=== PATIENT | female | born 1970 | race Hispanic/Latino ===

== ENCOUNTER 2017-07-14 10:01 | Outpatient (CLI) | payer BC ==
[2017-07-14 10:43] LABS: Hemoglobin 13.8 g/dL (12.0-16.0); Mean Corpuscular HGB CONC 34.8 g/dL (32.0-36.0); Mean Corpuscular Volume 94.9 fl (81.0-99.0); Mean Platelet Volume 6.8 fL (7.4-10.4); Platelet Count 265 thou/uL (130-400); RBC Distribution Width 10.8 % (11.5-14.5); Red Blood Cell (RBC) Count 4.18 mill/uL (4.20-5.40); White Blood Cell (WBC) Count 5.4 thou/uL (4.8-10.8)
[2017-07-14 10:51] LABS: INR-International Normal Ratio 0.9; PTT 28.7 SEC (22.9-36.1); Prothrombin Time 12.5 SEC (12.0-14.7)
[2017-07-14 11:05] LABS: Anion Gap 14 mmol/L (10-20); BUN (Urea Nitrogen) 13 mg/dL (7.0-18.7); Calc. Creatinine Clearance 0 mL/min (70-130); Calcium 9.5 mg/dL (7.8-10.44); Carbon Dioxide 23 mmol/L (22-29); Chloride 107 mmol/L (98-107); Estimated GFR-MDRD 90; Glucose 109 mg/dL (70-105); Potassium 4.1 mmol/L (3.5-5.1); Sodium 140 mmol/L (136-145)
== END 2017-07-14 10:02 | disposition home or self-care (01) ==
LOC: LABBT 10:01
PROVIDERS: ATTEND Surgery
DX: Z01.818 Encounter for other preprocedural examination (principal); M48.02 Spinal stenosis, cervical region; M54.12 Radiculopathy, cervical region
CPT/HCPCS: 80048; 85027; 85610; 85730; 93005; 93010

== ENCOUNTER 2017-07-17 05:48 | Day surgery (SDC) | payer BC ==
[2017-07-16 11:23] VITALS: BMI 25.0
[2017-07-17] MEDS ORDERED: Thrombin 5000 UNITS/5 ML VIAL ONE (06:24)
[2017-07-17] MEDS ORDERED: Sodium Chloride 0.9% 10 ML ONE (06:24)
[2017-07-17] MEDS ORDERED: Midazolam HCl 2 mg/2 ml Vial ONE (07:06)
[2017-07-17] MEDS ORDERED: CEFAZOLIN/Water 2 GM/20 ML SYRINGE ONE (07:06)
[2017-07-17] MEDS ORDERED: Fentanyl 100 MCG/2 ML VIAL ONE (07:25)
[2017-07-17] MEDS ORDERED: Meperidine HCl/PF 25 MG/ML VIAL SLOW IVP PRN (08:40)
[2017-07-17] MEDS ORDERED: Promethazine HCl 25 MG/ML VIAL SLOW IVP PRN (08:40)
[2017-07-17] MEDS ORDERED: HYDROmorphone 2 MG/ML VIAL SLOW IVP PRN (08:40)
[2017-07-17] MEDS ORDERED: Ondansetron HCl/PF 4 MG/2 ML Vial IVP PRN (08:40)
[2017-07-17] MEDS ORDERED: Promethazine HCl 25 MG/ML VIAL IM PRN ×2 (08:40→10:28)
[2017-07-17] MEDS ORDERED: Morphine Sulfate 2 MG/ML SYRINGE SLOW IVP PRN (08:40)
[2017-07-17] MEDS ORDERED: HYDROmorphone 0.5 MG/0.5 ML SYRINGE ONE ×3 (10:08→10:22)
[2017-07-17] MEDS ORDERED: Promethazine HCl 25 MG/ML VIAL ONE (10:26)
[2017-07-17] MEDS ORDERED: Mag-Al 1200 mg/1200 mg/30 ML UDCUP PO PRN (10:28)
[2017-07-17] MEDS ORDERED: Acetaminophen/Codeine 30-300mg Tablet PO PRN (10:28)
[2017-07-17] MEDS ORDERED: Milk Of Magnesia 30 ML UDCUP PO PRN (10:28)
[2017-07-17] MEDS ORDERED: traMADol HCl 50 MG TAB PO PRN (10:28)
[2017-07-17] MEDS ORDERED: Fleet Enema 133 ML BOT PR PRN (10:28)
[2017-07-17] MEDS ORDERED: Acetaminophen 325 MG TAB PO PRN (10:28)
[2017-07-17] MEDS ORDERED: Bisacodyl 10 MG SUPP PR PRN (10:28)
--- NOTE | 2017-07-17 11:07 | OP ---
DATE OF PROCEDURE: 07/17/2017 OR: OR #11. WOUND TYPE: Type 1 wound. SURGEON: Thomas Soriano M.D. MEDICAL ESTHETICIAN: Juan Carlos Irving PA-C. PREPROCEDURE DIAGNOSES: Multilevel cervical stenosis with cervical cord compression and nerve root c ompression. POSTPROCEDURE DIAGNOSES: Multilevel cervical stenosis with cervical cord compression and nerve root compression. PROCEDURE: 1. Anterior C3-C4, C4-C5, C5-C6 diskectomies for decompression spinal cord nerve roots and placement of interbody spacers. C3-C4, C4-C5, C5-C6 packed with local bone autograft obtained from same incis ion allograft for arthrodesis C3-C4, C4-C5, C5-C6. 2. Anterior cervical plate and screw fixation, C3-C4, C5-C6. 3. Use of operative microscope for microdissection. PROCEDURE: After informed consent was obtained from the patient, the patient brought to OR 11. Prop er patient pause and identification was carried out. She was placed under excellent endotracheal ane sthesia and positioned supine on the OR table. All appropriate points were padded. Cervical spine w as kept in neutral position and we identified an oblique belle to allow for approach to C3, C4, C5, C6 segments. This region was sterilely cleansed, prepared, and draped. Proper patient pause and ident ification was carried out. The wound was then opened with a combination of sharp, monopolar and blun t dissection and we proceeded lateral to the larynx and pharynx and medial to the right carotid sheat h. We identified the C3, C4, C5, C6 segments and the prevertebral layer of deep cervical fascia. Lo calization confirmed our area of interest and retraction was set. Distraction at C3-C4 then occurred and microscope was brought in for microdissection. A diskectomy at C3-C4 was performed with decompr ession of the neural elements. Interbody spacer of appropriate dimension was packed with graft and p laced at C3-C4 for arthrodesis. Distraction at C4-C5 then occurred. Diskectomy was performed there with placement of interbody spacer following a satisfactory neural element decompression and an inter body spacer placed at C4-C5 for arthrodesis also packed with graft and distraction was released and p laced again at C5-C6 for diskectomy and again with decompression of neural elements and placement int erbody spacer packed with graft at C5-C6. We were satisfied with our construct. The microscope was removed. An anterior cervical plate and screw fixation then occurred at C3, C4, C5, C6, final tighte brett. Copious irrigation occurred throughout as did maximizing hemostasis. The wound was then close d in anatomic layers following the placement of a drain. The patient then emerged from anesthesia.
[2017-07-17] MEDS ORDERED: Lidocaine 1% PF 5 ML VIAL ONE ×2 (14:44)
[2017-07-17] MEDS ORDERED: Dexamethasone 10 MG/ML VIAL ONE (14:44)
[2017-07-17] MEDS ORDERED: Metoclopramide HCl 10 MG/2 ML VIAL ONE (14:44)
[2017-07-17] MEDS ORDERED: Glycopyrrolate 0.2 MG/ML 5 ML SYRINGE ONE (14:44)
[2017-07-17] MEDS ORDERED: Ondansetron HCl/PF 4 MG/2 ML Vial ONE (14:44)
[2017-07-17] MEDS ORDERED: PROPOFOL 200 MG/20 ML VIAL ONE (14:44)
[2017-07-17] MEDS: CEFAZOLIN/Water 2 GM/20 ML SYRINGE SLOW IVP SCH ×2 (15:03→22:00)
[2017-07-17] MEDS: Sodium Chloride 0.9% 1,000 ML IV SCH ×2 (15:03→22:29)
[2017-07-17] MEDS: HYDROcodone/Acetaminophen 7.5/325 mg Tablet PO PRN ×2 (17:37→22:00)
[2017-07-17] MEDS: tiZANidine HCl 4 MG TAB PO PRN (22:00)
[2017-07-18] MEDS: HYDROcodone/Acetaminophen 7.5/325 mg Tablet PO PRN ×2 (03:35→08:01)
[2017-07-18] MEDS: tiZANidine HCl 4 MG TAB PO PRN ×2 (03:35→10:02)
[2017-07-18] MEDS: CEFAZOLIN/Water 2 GM/20 ML SYRINGE SLOW IVP SCH (06:03)
[2017-07-18 07:29] VITALS: TEMP 98.5
[2017-07-18 08:08] VITALS: BP 100/63
--- NOTE | 2017-07-18 10:33 | PRG ---
DATE OF SERVICE: 07/18/2017 Ms. Montez is postoperative day 1 from C3-6 ACDF. She is doing very well with resolution in her arm pa in. As expected she has interscapular and neck pain related to her recent surgery yesterday. She yeboah s mild dysphonia, but is tolerating orals. Her drain output is minimal. We will remove it. Her str ength is good in her upper extremities. She has met criteria for dismissal and we will dismiss her.
== END 2017-07-18 11:15 | disposition home or self-care (01) ==
LOC: SDC 05:48 → SURG B 11:58 → SDC 07-18 11:15
PROVIDERS: ATTEND Surgery
PROC: 0RB30ZZ Excision of Cervical Vertebral Disc, Open Approach (ICD-10-PCS; principal; 2017-07-17)
PROC: 0RG20A0 Fusion of 2 or more Cervical Vertebral Joints with Interbody Fusion Device, Anterior Approach, Anterior Column, Open Approach (ICD-10-PCS; principal; 2017-07-17)
PROC: 0RG2070 Fusion of 2 or more Cervical Vertebral Joints with Autologous Tissue Substitute, Anterior Approach, Anterior Column, Open Approach (ICD-10-PCS; principal; 2017-07-17)
DX: M48.02 Spinal stenosis, cervical region (principal); G54.2 Cervical root disorders, not elsewhere classified
CPT/HCPCS: 76001; A4216; C1713; C1776; J0131; J1100; J1170; J2001; J2250; J2405; J2550; J2704; J2765; J3010; J3490

== ENCOUNTER 2017-09-03 08:18 | Outpatient (CLI) | payer BC ==
--- NOTE | 2017-09-03 09:42 | RAD ---
CERVICAL SPINE SERIES 3 VIEWS: Date: 09/03/17 HISTORY: Follow-up surgery. FINDINGS: The patient has undergone anterior cervical fusion. There has been placement of plate and screws exte nding from C3 to C6. There are markers of intervening disc implants which are within the confines of the disc level. There is disc narrowing at the C6-7 level. IMPRESSION: Postoperative changes of the spine. POS: MANUELA
== END 2017-09-03 08:19 | disposition home or self-care (01) ==
LOC: TBSIIMAG 08:18
PROVIDERS: ATTEND Surgery
DX: M54.2 Cervicalgia (principal); Z98.1 Arthrodesis status
CPT/HCPCS: 72040

== ENCOUNTER 2017-10-27 15:00 | Outpatient (CLI) | payer BC ==
--- NOTE | 2017-10-27 17:15 | RAD ---
CERVICAL SPINE SERIES 3 VIEWS: Date: 10/27/17 HISTORY: Follow-up surgery. COMPARISON: 09/03/17 exam. FINDINGS: Anterior cervical fusion with plate and screws extending from C3-C6 are noted. Markers of disc implan ts are within the confines of the disc levels. Degenerative disc narrowing is seen at C6-7. IMPRESSION: Postoperative changes of the spine. POS: NEO
== END 2017-10-27 15:01 | disposition home or self-care (01) ==
LOC: TBSIIMAG 15:00
PROVIDERS: ATTEND Surgery
DX: M54.12 Radiculopathy, cervical region (principal); M50.20 Other cervical disc displacement, unspecified cervical region; M54.2 Cervicalgia; Z98.1 Arthrodesis status
CPT/HCPCS: 72040

== ENCOUNTER 2019-12-21 15:05 | Outpatient (CLI) | payer BC ==
--- NOTE | 2019-12-21 16:24 | MMO ---
Bilateral MAMMO Bilat Screen [facility]. CLINICAL HISTORY: Patient is 49 years old and is seen for screening. The patient has no family history of breast cancer. The patient has no personal history of cancer. VIEWS: The views performed were: bilateral craniocaudal with tomosynthesis and bilateral mediolateral oblique with tomosynthesis. FILMS COMPARED: The present examination has been compared to prior imaging studies performed at 11/30/2010 and 03/29/2016. This study has been interpreted with the assistance of computer-aided detection. MAMMOGRAM FINDINGS: There are scattered fibroglandular densities. There are no suspicious masses, suspicious calcifications, or new areas of architectural distortion. IMPRESSION: THERE IS NO MAMMOGRAPHIC EVIDENCE OF MALIGNANCY. A ROUTINE FOLLOW-UP MAMMOGRAM IN 1 YEAR IS RECOMMENDED. THE RESULTS OF THIS EXAM WERE SENT TO THE PATIENT. ACR BI-RADS Category 1 - Negative MAMMOGRAPHY NOTE: 1. A negative mammogram report should not delay a biopsy if a dominant of clinically suspicious mass is present. 2. Approximately 10% to 15% of breast cancers are not detected by mammography. 3. Adenosis and dense breasts may obscure an underlying neoplasm. Reported by: HAFSA BREWSTER MD Electonically Signed: [id number]
== END 2019-12-21 15:06 | disposition home or self-care (01) ==
LOC: BICMAMMO 15:05
PROVIDERS: ATTEND Nurse Practitioner Family
DX: Z12.31 Encounter for screening mammogram for malignant neoplasm of breast (principal)
CPT/HCPCS: 77063; 77067

== ENCOUNTER 2022-01-22 14:25 | Outpatient (CLI) | payer BC | END 2022-01-22 14:26 | disposition home or self-care (01) | LOC: BICMAMMO 14:25 | PROVIDERS: ATTEND Nurse Practitioner Family | DX: Z12.31 Encounter for screening mammogram for malignant neoplasm of breast (principal) | CPT/HCPCS: 77063; 77067 ==